=== PATIENT | female | born 1995 | race Caucasian/White ===

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

== ENCOUNTER 2018-01-16 17:18 | Emergency (ER) | payer BC ==
[2018-01-16 17:38] VITALS: BP 122/68
--- NOTE | 2018-01-16 19:54 | UC ---
Complaint Female HPI - HPI Summary HPI Summary: Had very brief right pelvic shooting pain yesterday. None since. Vaginal discharge with ? odor. - History Of Current Complaint Chief Complaint: UCSTDScreening Stated Complaint: PERSONAL Time Seen by Provider: 01/16/18 19:45 Hx Obtained From: Patient Hx Last Menstrual Period: 12/30/17 ?: No Onset/Duration: Sudden Onset Timing: Lasting Seconds - 1-2 Severity Initially: Moderate Severity Currently: None Pain Intensity: 0 Character: Sharp Aggravating Factor(s): Nothing Alleviating Factor(s): Nothing Associated Signs And Symptoms: Positive: Vaginal Bleeding/Discharge Related Hx: - 0 - Allergies/Home Medications Allergies/Adverse Reactions: Allergies Allergy/AdvReac Type Severity Reaction Status Date / Time amoxicillin Allergy Hives Verified 01/16/18 17:35 PMH/Surg Hx/FS Hx/Imm Hx Previously Healthy: Yes - Surgical History Surgical History: None - Family History Known Family History: Positive: Diabetes - Social History Occupation: Student Lives: Dormitory/Roommates Alcohol Use: None Substance Use Type: None Smoking Status (MU): Never Smoked Tobacco Review of Systems All Other Systems Reviewed And Are Negative: Yes Gastrointestinal: Positive: Abdominal Pain Genitourinary: Positive: Vaginal/Penile Discharge Physical Exam Triage Information Reviewed: Yes Appearance: Well-Appearing, No Pain Distress, Well-Nourished Vital Signs: Initial Vital Signs Temp 98.8 F 01/16/18 17:32 Pulse 83 01/16/18 17:32 Resp 14 01/16/18 17:32 BP 122/68 01/16/18 17:32 Pulse Ox 100 01/16/18 17:32 Vital Signs Reviewed: Yes Eyes: Positive: Conjunctiva Inflamed Neck exam: Normal Respiratory Exam: Normal Cardiovascular Exam: Normal Abdomen Description: Positive: Nontender, No Organomegaly, Soft. Negative: CVA Tenderness (R), CVA Tenderness (L) Pelvic Exam: Positive: External Exam Normal. Negative: Discharge Musculoskeletal Exam: Normal Neurological Exam: Normal Psychological Exam: Normal Skin Exam: Normal Complaint Female Dx - Differential Dx/Diagnosis Differential Diagnosis/HQI/PQRI: Appendicitis, Cervicitis, Pelvic Inflammatory Disease Provider Diagnoses: Vaginal discharge. Pelvic pain Discharge - Sign-Out/Discharge Documenting (check all that apply): Patient Departure All imaging exams completed and their final reports reviewed: No Studies - Discharge Plan Condition: Stable Disposition: HOME Patient Education Materials: Vaginitis (ED) Referrals: No Primary Care Phys,NOPCP [Primary Care Provider] - - Billing Disposition and Condition Condition: STABLE Disposition: Home
== END 2018-01-16 20:10 | disposition home or self-care (01) ==
LOC: UCCORT 17:18
DX: N89.8 Other specified noninflammatory disorders of vagina (principal); R10.2 Pelvic and perineal pain; Z88.0 Allergy status to penicillin
CPT/HCPCS: 87480; 87491; 87510; 87591; 99211; G0463